=== PATIENT | female | born 1990 | race Caucasian/White ===

== ENCOUNTER 2020-02-11 11:50 | Emergency (ER) | payer BC, MEDICAID ==
--- NOTE | 2020-02-11 13:23 | ER Document Report ---
ED General - General Chief Complaint: Cold Symptoms Stated Complaint: COUGH/CONGESTION/SOB/HEADACHES Notes: Patient is a 29-year-old white female with a history of morbid obesity who presents to the emergency department with a chief complaint of cough. She states on , 3 days ago she began with nausea, vomiting and diarrhea. She states at first they thought she had a stomach bug. She states the nausea and vomiting subsided today later with the diarrhea persisted. She states yesterday she began developing a productive cough of yellow sputum that is associated with a sensation of shortness of breath. She states there is pain with deep inspiration. States the cough is worse with deep inspiration. She denies any chest pain at rest. Admits to some associated body aches and chills. Denies any fever or night sweats. No urinary complaints. No abdominal pain. No recent travel or known sick contacts. - Related Data Allergies/Adverse Reactions: latex [Latex] Allergy (Verified 02/11/20 12:37) Home Medications: Pt. came in via personal vehicle, C/O of cough, shortness of breath, nausea, vomiting and chills. Pt. states symptoms started last week. 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 Pt. is A & O X4, NAD at this time. Past Medical History - Social History Smoking Status: Current Every Day Smoker Chew tobacco use (# tins/day): No Frequency of alcohol use: None Drug Abuse: Marijuana Family History: Reviewed & Not Pertinent Patient has homicidal ideation: No Endocrine Medical History: Denies: Hx Diabetes Mellitus Type 1, Hx Diabetes Mellitus Type 2 Skin Medical History: Reports Hx Cellulitis, Reports Hx MRSA - MRSA 07/23 ABDOMEN Infectious Medical History: Reports: Hx MRSA Past Surgical History: Reports: Hx Appendectomy, Hx Gynecologic Surgery - Immunizations Immunizations up to date: Yes Hx Diphtheria, Pertussis, Tetanus Vaccination: Yes Review of Systems - Review of Systems Constitutional: Chills Respiratory: Cough Gastrointestinal: Diarrhea, Nausea, Vomiting Musculoskeletal: Other - Myalgias Neurological/Psychological: Headaches -: Yes All other systems reviewed and negative Physical Exam - Vital signs Vitals: Temp Pulse Resp BP Pulse Ox 98.8 F 88 35 H 119/76 97 02/11/20 12:24 02/11/20 12:24 02/11/20 12:24 02/11/20 12:24 02/11/20 12:24 - General General appearance: Appears well, Alert In distress: None - HEENT Head: Normocephalic, Atraumatic Eyes: Normal Conjunctiva: Normal Extraocular movements intact: Yes Pupils: PERRL Ears: Normal External canal: Normal Tympanic membrane: Normal Nasal: Normal Mucous membranes: Normal Pharynx: Normal Neck: Normal, Supple - Respiratory Respiratory status: No respiratory distress Chest status: Nontender Breath sounds: Normal Chest palpation: Normal - Cardiovascular Rhythm: Regular Heart sounds: Normal auscultation Murmur: No - Abdominal Inspection: Normal Distension: No distension Bowel sounds: Normal Tenderness: Nontender Organomegaly: No organomegaly - Extremities General upper extremity: Normal inspection, Nontender, Normal color, Normal ROM, Normal temperature General lower extremity: Normal inspection, Nontender, Normal color, Normal ROM, Normal temperature, Normal weight bearing. No: Bailey's sign - Neurological Neuro grossly intact: Yes Cognition: Normal Orientation: AAOx4 Dimple Coma Scale Eye Opening: Spontaneous Camargo Coma Scale Verbal: Oriented Dimple Coma Scale Motor: Obeys Commands Camargo Coma Scale Total: 15 Speech: Normal - Psychological Associated symptoms: Normal affect, Normal mood - Skin Skin Temperature: Warm Skin Moisture: Dry Skin Color: Normal Course - Re-evaluation Re-evalutation: 02/11/20 15:21 Initial respiratory rate was taken upon patient's initial arrival from the parking lot into the emergency room. A repeat rate in the room at rests was 16. Patient is stable and in no acute distress. She is afebrile. She is nontoxic in appearance. Chest x-ray is negative for any acute process per radiologist. Flu swabs were negative. Vitals are otherwise within normal limits. She is got no known exposure to COVID-19. She has no chronic medical conditions or immunocompromised state. Will treat symptomatically, discussed supportive care measures and she will self isolate at home until after 72 hours symptom-free. Counseled her at length regarding the importance of outpatient follow-up and advised she return here or any ER immediately with any new, persistent or worsening symptoms. She verbalized understood and agreed. - Vital Signs Vital signs: Temp Pulse Resp BP Pulse Ox 98.8 F 88 35 H 119/76 97 02/11/20 12:27 02/11/20 12:24 02/11/20 12:24 02/11/20 12:24 02/11/20 12:24 Discharge - Discharge Clinical Impression: Bronchitis Condition: Stable Disposition: HOME, SELF-CARE Instructions: Bronchitis ([facility]) Additional Instructions: Follow-up with your regular doctor in 2 to 3 days for reevaluation. Return here or any ER immediately with any new, persistent or worsening symptoms. Prescriptions: Benzonatate [Tessalon Perles 100 mg Capsule] 200 mg PO Q8HP PRN #40 capsule PRN Reason: Albuterol Sulfate [Proair Respiclick] 90 mcg IH Q6 PRN #1 [email or web address] PRN Reason:
--- NOTE | 2020-02-11 13:50 | RADIOLOGY REPORT (SQ) ---
EXAM DESCRIPTION: CHEST SINGLE VIEW IMAGES COMPLETED DATE/TIME: 02/11/2020 12:35 pm REASON FOR STUDY: cough COMPARISON: None. EXAM PARAMETERS: NUMBER OF VIEWS: One view. TECHNIQUE: Single frontal radiographic view of the chest acquired. RADIATION DOSE: NA LIMITATIONS: None. FINDINGS: LUNGS AND PLEURA: No opacities, masses or pneumothorax. No pleural effusion. MEDIASTINUM AND HILAR STRUCTURES: No masses. Contour normal. HEART AND VASCULAR STRUCTURES: Heart normal in size. Normal vasculature. BONES: No acute findings. HARDWARE: None in the chest. OTHER: No other significant finding. IMPRESSION: NO ACUTE RADIOGRAPHIC FINDING IN THE CHEST. TECHNICAL DOCUMENTATION: JOB ID: [id number] [place]- All Rights Reserved Reading location - IP/workstation name: [email or web address]
[2020-02-11 15:17] LABS: A TYPE INFLUENZA AG NEGATIVE (NEGATIVE); B INFLUENZA AG NEGATIVE (NEGATIVE)
[2020-02-11 15:39] VITALS: BP 104/62
== END 2020-02-11 15:34 | disposition home or self-care (01) ==
LOC: ER 11:50
DX: J40 Bronchitis, not specified as acute or chronic (principal); R05 Cough; R09.81 Nasal congestion; R06.02 Shortness of breath; R51 Headache; R11.2 Nausea with vomiting, unspecified; R19.7 Diarrhea, unspecified; M79.10 Myalgia, unspecified site; F17.200 Nicotine dependence, unspecified, uncomplicated
CPT/HCPCS: 71045; 87804; 99283